=== PATIENT | female | born 1940 | race Caucasian/White ===

== ENCOUNTER 2016-08-26 03:59 | Inpatient (IN) | payer MEDICARE ==
[~2016-08-26] VITALS: Ht 149.9 cm; Wt 68.5 kg
[2016-08-26 05:00] VITALS: BP 163/77
[2016-08-26] MEDS ORDERED: MORPHINE SULFATE 2 MG/ML DISP.SYRIN. IV PRN (06:00)
[2016-08-26] MEDS ORDERED: ONDANSETRON PF 4 MG/2 ML VIAL. IV PRN (06:00)
[2016-08-26] MEDS ORDERED: MORPHINE SULFATE 4 MG/ML DISP.SYRIN. IV PRN (06:00)
[2016-08-26] MEDS: IV NORMAL SALINE 1000ML BAG 1,000 ML IV SCH ×2 (06:03→19:20)
[2016-08-26] MEDS ORDERED: LORA10TA55 PO (06:20)
[2016-08-26] MEDS ORDERED: RANI150C PO (06:20)
[2016-08-26] MEDS ORDERED: ASPI81TA2 PO (06:20)
[2016-08-26] MEDS ORDERED: DOCU100C5 PO (06:20)
[2016-08-26] MEDS ORDERED: POLY17PO3 PO (06:20)
[2016-08-26] MEDS ORDERED: URSODIOL 300 MG PO (06:20)
[2016-08-26] MEDS ORDERED: SIMV40TA3 PO (06:20)
[2016-08-26 06:51] LABS: CREATININE 0.6 mg/dL (0.6-1.0)
[2016-08-26 06:54] LABS: BASO % 0 % (0-3); EOS % 0 % (0-3); HEMATOCRIT 38.1 % (36.0-47.0); HEMOGLOBIN 12.8 g/dL (12.0-15.5); LYMPH # 0.6 x10^3/uL (1.0-4.8); LYMPH % 5 % (24-48); MEAN CORPUSCULAR HEMOGLOBIN 31 pg (25-35); MEAN CORPUSCULAR HGB CONC 34 g/dL (31-37); MEAN CORPUSCULAR VOLUME 93 fL (79-100); MONO % 2 % (0-9); NEUT % 93 % (31-73); PLATELET COUNT 245 x10^3/uL (140-400); RED CELL DISTRIBUTION WIDTH 13.5 % (11.5-14.5); WHITE BLOOD COUNT 10.4 x10^3/uL (4.0-11.0)
[2016-08-26 07:00] VITALS: BP 147/61
[2016-08-26 09:09] LABS: PLT ESTIMATE ADEQUATE (ADEQUATE)
[2016-08-26 11:00] VITALS: BP 141/68
[2016-08-26] MEDS: POLYETHYLENE GLYCOL 3350 17 GM PACKET. PO SCH (12:00)
[2016-08-26] MEDS: DOCUSATE SODIUM 100 MG CAPSULE PO SCH (12:00)
[2016-08-26] MEDS: ASPIRIN 81 MG TAB.CHEW PO SCH (12:00)
--- NOTE | 2016-08-26 12:57 | PDOC ---
Provider Note Provider Note full consult to follow. sbo, improving. cont npo, ng tube. KISHOR NEWMAN MD Aug 26, 2016 12:57
--- NOTE | 2016-08-26 14:55 | HP ---
ADMIT DATE: 08/26/2016 CHIEF COMPLAINT: Abdominal pain. HISTORY OF PRESENT ILLNESS: The patient is a pleasant middle-aged female who presented to the ER at [facility] with abdominal pain. She was noted to have gallstone pancreatitis. I discussed the case with the ER physician. We transferred to our facility. She is going to have consultation with General Surgery. PAST MEDICAL HISTORY: Gallstones, constipation and hyperlipidemia. ALLERGIES: DIPHENHYDRAMINE. FAMILY HISTORY: Diabetes. SOCIAL HISTORY: She does not drink, smoke or take drugs. MEDICATIONS: Reviewed, please refer to the MRAD. REVIEW OF SYSTEMS: GENERAL: No history of weight change, weakness or fevers. SKIN: No bruising, hair changes or rashes. EYES: No blurred, double or loss of vision. NOSE AND THROAT: No history of nosebleeds, hoarseness or sore throat. HEART: No history of palpitations, chest pain or shortness of breath on exertion. LUNGS: Denies cough, hemoptysis, wheezing or shortness of breath. GASTROINTESTINAL: She complains of abdominal pain. GENITOURINARY: No history of frequency, urgency, hesitancy or nocturia. NEUROLOGIC: Denies history of numbness, tingling, tremor or weakness. PSYCHIATRIC: No history of panic, anxiety or depression. ENDOCRINE: No history of heat or cold intolerance, polyuria or polydipsia. EXTREMITIES: Denies muscle weakness, joint pain, pain on walking or stiffness. PHYSICAL EXAMINATION: VITAL SIGNS: Temperature afebrile, pulse 74, respirations 20, blood pressure 163/77. GENERAL: She is alert, cooperative. HEART: Normal S1, S2. LUNGS: Clear. ABDOMEN: Soft, positive bowel sounds, tender. EXTREMITIES: No edema. SKIN: No rashes. PSYCHIATRIC: She is stable. VASCULAR: Good capillary refill. ENDOCRINE: No thyromegaly. LYMPHATICS: No cervical nodes. HEMATOPOIETIC: No bruising. LABORATORY DATA: Electrolytes are normal other sodium of 135 and glucose of 143. Hematology, normal. ASSESSMENT AND PLAN: Symptomatic gallstones. The patient has been admitted. We are consulting General Surgery, suspect she might need laparoscopic cholecystectomy. We will continue IV hydration, p.r.n. pain meds, recheck her labs, home meds. STEPHANIE JUAN DO DR: Alvino JOB#: [id number] / [id number]
[2016-08-26 15:00] VITALS: BP 138/75
[2016-08-26 19:00] VITALS: BP 169/66
[2016-08-26] MEDS: SIMVASTATIN 40 MG TABLET. PO SCH (21:00)
[2016-08-26] MEDS ORDERED: FAMOTIDINE 20 MG TABLET. PO SCH (21:00)
[2016-08-26] MEDS: FAMOTIDINE 20 MG/2 ML VIAL IVP SCH (22:12)
[2016-08-26 23:00] VITALS: BP 143/74
[2016-08-27 03:00] VITALS: BP 160/70
[2016-08-27] MEDS ORDERED: CHOL100013 PO (03:51)
[2016-08-27] MEDS ORDERED: IPRA3AMP NEB (03:56)
[2016-08-27] MEDS ORDERED: ASCO10002 PO (03:56)
[2016-08-27] MEDS ORDERED: MULT1TAB52 PO (03:56)
[2016-08-27] MEDS ORDERED: OMEG1CAP28 PO (03:56)
[2016-08-27] MEDS ORDERED: IPRATRPIUM/ALBUTEROL 0.5/2.5MG 3 ML NEBU. NEB ONE (04:00)
[2016-08-27 07:00] VITALS: BP 164/73
[2016-08-27] MEDS: IV NORMAL SALINE 1000ML BAG 1,000 ML IV SCH ×2 (07:30→21:13)
[2016-08-27] MEDS: ASPIRIN 81 MG TAB.CHEW PO SCH (08:29)
[2016-08-27] MEDS: DOCUSATE SODIUM 100 MG CAPSULE PO SCH (08:30)
[2016-08-27] MEDS: POLYETHYLENE GLYCOL 3350 17 GM PACKET. PO SCH (08:30)
[2016-08-27 11:00] VITALS: BP 167/71
--- NOTE | 2016-08-27 12:49 | CONS ---
DATE OF CONSULTATION: 08/26/2016 CHIEF COMPLAINT: Abdominal pain. HISTORY OF PRESENT ILLNESS: The patient is a 75-year-old female who began having abdominal pain yesterday. The pain was constant and severe. It has now nearly resolved at the time that I saw her earlier today. The pain was located along the left side of her abdomen around and then below her colostomy and it was associated with nausea and vomiting. She did continue to have stool from her ostomy. Her history is significant for undergoing an APR approximately 7-8 years ago followed with chemotherapy and radiation for rectal cancer. She was found with parastomal hernia, which was repaired with mesh. This failed and required removal of the mesh, relocation of the stoma and repair of her recurrent hernia with more mesh. She has had a longstanding hernia along her left lateral abdomen, below and around her ostomy. She says it is getting larger. PAST MEDICAL HISTORY: 1. Rectal cancer for which she underwent APR. 2. Hypercholesterolemia. 3. COPD. PAST SURGICAL HISTORY: 1. APR. 2. Parastomal hernia repair. 3. Repair of recurrent parastomal hernia with mesh, removal of old mesh and the relocation of her ostomy. ALLERGIES: BENADRYL. MEDICATIONS: I have reviewed the medication administration record as well as her home medication. SOCIAL HISTORY: She is a former smoker. She is not a heavy drinker. She is single. FAMILY HISTORY: Noncontributory to this illness. REVIEW OF SYSTEMS: CONSTITUTIONAL: Denies fevers, chills. EYES: Denies abrupt loss of vision or double vision. EARS, NOSE, MOUTH AND THROAT: Denies ringing in her ears, but has had some loss of hearing as she ages. CARDIOVASCULAR: Denies chest pain or heart palpitations. RESPIRATORY: She has chronic shortness of breath and cough. This is at her baseline. GASTROINTESTINAL: See HPI. GENITOURINARY: No dysuria or hematuria. HEMATOLOGIC: No easy bleeding or bruising. MUSCULOSKELETAL: She has some arthralgias in her hands. No new myalgias or arthralgias. DERMATOLOGIC: No new skin rashes or lesions. NEUROLOGIC: No headaches or seizures. PSYCHIATRIC: No depression or anxiety. PHYSICAL EXAMINATION: VITAL SIGNS: At the time I saw her was afebrile with a heart rate 95, respiratory rate 20, blood pressure 141/68. She is somewhat obese with a BMI of 31. GENERAL: This is a well-developed, well-nourished female in no acute distress. EYES: Pupils are round and reactive. Sclerae are nonicteric. HEENT: Head is atraumatic. Mucous membranes moist. Face symmetric. NECK: Supple, without cervical lymphadenopathy. No cervical or supraclavicular lymphadenopathy. Neck is nontender without masses. CARDIOVASCULAR: Regular rate and rhythm. No pedal edema is noted. RESPIRATORY: Respirations are nonlabored. Chest wall nontender to palpation. ABDOMEN: Soft, nondistended, nontender. She does have fullness along the left side of her abdomen. Because of her obesity, it is difficult to ascertain the fascial edges. Her hernias are soft and nontender. She does have stool in her ostomy bag. DERMATOLOGIC: Exposed portions of her skin are unremarkable without rashes or lesions. NEUROLOGICAL: Alert and oriented x 3. No resting tremor. She is able to move all 4 extremities without difficulty. She is able to sit up on her own from lying down in the bed without difficulty. PSYCHIATRIC: She is cooperative with appropriate mood and affect. PERIANAL EXAM: Confirms absence of anus consistent with her history of APR. Digital exam was performed. History was not certain if she had an APR, if she still had an anus, or if she was at some point would be eligible for takedown ostomy. Exam confirms that she has had an APR but not be a candidate for ostomy reversal. LABORATORY DATA: Reviewed. I reviewed her CT images. ASSESSMENT: 1. Small-bowel obstruction could be adhesive versus radiation-induced versus related to her parastomal hernia. This seems to be present on admission, but now much improved. 2. Obesity with a BMI of 31. 3. History of rectal cancer status post abdominoperineal resection, radiation, chemotherapy. 4. Hyperlipidemia. 5. Chronic obstructive pulmonary disease and chronic respiratory failure. 6. Parastomal hernia as well as a left lower quadrant incisional hernia. 7. Cholelithiasis without symptoms. PLAN: At this point, the patient has an NG tube in place, she is n.p.o. I do agree with the management. I would follow her clinically. Hopefully, she will continue to improve and resolve this obstruction without requiring surgery. We did discuss that surgery in her would have significant risks including a nearly inevitable parastomal hernia recurrence given that she has had two ostomies both of which developed peristomal hernia and she remains obese. She seems to understand this fact. I will follow along. KISHOR NEWMAN MD DR: CORI/judith JOB#: [id number] / [id number] STEPHANIE Solis Kathleen MTDD
--- NOTE | 2016-08-27 14:01 | PDOC ---
PROGRESS NOTES Chief Complaint Chief Complaint - small-bowel obstruction; adhesive vs radiation-induced vs associated with hernia. - cholelithiasis; r/o gallstone pancreatitis (Lipase nrml) - hx of rectal cancer; s/p abdominoperineal resection - parastomal hernia, incisional hernia LLQ - COPD - hyperlipidemia - obesity; BMI 31 History of Present Illness History of Present Illness Patient is in no acute distress when evaluated this AM. DPA present at bedside. Reports feeling better. Denies abdominal pain at this time. Lipase is normal and though there were reports of cholelithiasis, this does not appear to be the cause of the patient's symptoms. Was seen by general surgery who suspect a small bowel obstruction, and are hoping to avoid another surgery as the pt is at risk for complications. Vitals Vitals Vital Signs Date Time Temp Pulse Resp B/P Pulse Ox O2 Delivery O2 Flow Rate FiO2 08/27/16 11:00 97.8 84 18 167/71 96 Room Air 97.8 08/27/16 08:00 3.0 Physical Exam General: Alert, Cooperative, No acute distress Heart: Regular rate, Normal S1 Lungs: Clear Abdomen: Soft, No tenderness Extremities: No cyanosis, No edema Skin: No significant lesion Labs LABS Laboratory Tests Test 08/27/16 11:50 Lipase 206U/L (73-393) Review of Systems Review of Systems denies fever, chills denies abdominal pain denies nausea, vomiting Assessment and Plan Assessmemt and Plan ASSESSMENT: - small-bowel obstruction; adhesive vs radiation-induced vs associated with hernia. - cholelithiasis; likely not the cause of the pt's symptoms. r/o gallstone pancreatitis (Lipase nrml) - hx of rectal cancer; s/p abdominoperineal resection - parastomal hernia, incisional hernia LLQ - COPD - hyperlipidemia - obesity; BMI 31 PLAN: - Gen Surgery on the case; hoping pt will continue to improve and obstruction will resolve without requiring surgery, as the pt has significant risks. - Lipase level nrml - cont NGT, NPO - cont IVF - cont prn pain meds - recheck daily labs Problems: Comment Review of Relevant I have reviewed the following items loren (where applicable) has been applied. Labs Laboratory Tests Test 08/26/16 06:30 08/27/16 11:50 White Blood Count 10.4x10^3/uL (4.0-11.0) Red Blood Count 4.10x10^6/uL (3.50-5.40) Hemoglobin 12.8g/dL (12.0-15.5) Hematocrit 38.1% (36.0-47.0) Mean Corpuscular Volume 93fL (79-100) Mean Corpuscular Hemoglobin 31pg (25-35) Mean Corpuscular Hemoglobin Concent 34g/dL (31-37) Red Cell Distribution Width 13.5% (11.5-14.5) Platelet Count 245x10^3/uL (140-400) Neutrophils (%) (Auto) 93% (31-73) Lymphocytes (%) (Auto) 5% (24-48) Monocytes (%) (Auto) 2% (0-9) Eosinophils (%) (Auto) 0% (0-3) Basophils (%) (Auto) 0% (0-3) Neutrophils # (Auto) 9.7x10^3uL (1.8-7.7) Lymphocytes # (Auto) 0.6x10^3/uL (1.0-4.8) Monocytes # (Auto) 0.2x10^3/uL (0.0-1.1) Eosinophils # (Auto) 0.0x10^3/uL (0.0-0.7) Basophils # (Auto) 0.0x10^3/uL (0.0-0.2) Segmented Neutrophils % 82% (35-66) Band Neutrophils % 10% (0-9) Lymphocytes % 6% (24-48) Monocytes % 2% (0-10) Platelet Estimate Adequate (ADEQUATE) Sodium Level 135mmol/L (136-145) Potassium Level 4.0mmol/L (3.5-5.1) Chloride Level 98mmol/L (98-107) Carbon Dioxide Level 28mmol/L (21-32) Anion Gap 9 (6-14) Blood Urea Nitrogen 9mg/dL (7-20) Creatinine 0.6mg/dL (0.6-1.0) Estimated GFR (Cockcroft-Gault) 98.0 Glucose Level 143mg/dL (70-99) Calcium Level 9.0mg/dL (8.5-10.1) Lipase 206U/L (73-393) Laboratory Tests Test 08/27/16 11:50 Lipase 206U/L (73-393) Medications Current Medications Morphine Sulfate 2 mg PRN Q2HR PRN IV MODERATE PAIN; Start 08/26/16 at 06:00 Morphine Sulfate 4 mg PRN Q2HR PRN IV SEVERE PAIN; Start 08/26/16 at 06:00 Ondansetron HCl 4 mg 4 mg PRN Q6HRS PRN IV NAUSEA/VOMITING; Start 08/26/16 at 06 :00 Sodium Chloride (Iv Sodium Chloride 0.9% 1000ml Bag) 1,000 ml @ 75 mls/hr [id number] IV Last administered on 08/27/16 07:30; Start 08/26/16 at 06:00 Aspirin (Children'S Aspirin) 81 mg DAILY PO ; Start 08/26/16 at 12:00 Docusate Sodium (Colace) 100 mg DAILY PO ; Start 08/26/16 at 12:00 Polyethylene Glycol (miraLAX PACKET) 17 gm DAILY PO ; Start 08/26/16 at 12:00 Simvastatin (Zocor) 40 mg QHS PO ; Start 08/26/16 at 21:00 Famotidine (Pepcid) 20 mg QHS PO ; Start 08/26/16 at 21:00; Stop 08/26/16 at 21:00 ; Status DC Famotidine (Pepcid) 20 mg QHS IVP Last administered on 08/26/16 22:12; Start at 21:00 Albuterol/ Ipratropium (Duoneb) 3 ml 1X ONCE NEB Last administered on 04:10; Start 08/27/16 at 04:00; Stop 08/27/16 at 04:01; Status DC Active Scripts Active Reported Duoneb 0.5-3(2.5) Mg/3 Ml (Albuterol/Ipratropium) 3 Ml Ampul.neb 3 Ml NEB Q8HRS Fish Oil 1,200 Mg Softgel (Ada-3 Fatty Acids/Fish Oil) 1 Each Capsule 1 Each PO Vitamin C (Ascorbic Acid) 1,000 Mg Tablet 1,000 Mg PO Multivitamins (Multivitamin) 1 Each Tablet 1 Tab PO DAILY Vitamin D (Cholecalciferol (Vitamin D3)) 1,000 Unit Capsule 1 Cap PO DAILY Docusate Sodium 100 Mg Capsule 1 Cap PO DAILY Aspirin 81 Mg Tab.chew 1 Tab PO DAILY Loratadine 10 Mg Tab.rapdis 10 Mg PO Polyethylene Glycol 3350 17 Gm Powd.pack 17 Gm PO DAILY [urosodiol 300mg ] PO QID Simvastatin 40 Mg Tablet 1 Tab PO QHS Ranitidine Hcl 150 Mg Capsule 150 Mg PO DAILY Vitals/I & O Vital Sign - Last 24 Hours 08/26/16 08/26/16 08/26/16 08/26/16 15:00 19:00 20:00 23:00 Temp 98.8 98.1 98.4 98.8 98.1 98.4 Pulse 92 91 81 Resp 20 B/P 138/75 169/66 143/74 Pulse Ox 93 97 97 O2 Delivery Nasal Cannula Nasal Cannula Nasal Cannula Nasal Cannula O2 Flow Rate 2.0 2.0 2.0 2.0 08/27/16 08/27/16 08/27/16 08/27/16 03:00 04:09 07:00 08:00 Temp 98.2 98.0 98.2 98.0 Pulse 85 87 Resp 20 18 B/P 160/70 164/73 Pulse Ox 93 96 96 O2 Delivery Nasal Cannula Nasal Cannula Room Air Nasal Cannula O2 Flow Rate 2.0 3.0 3.0 08/27/16 11:00 Temp 97.8 97.8 Pulse 84 Resp 18 B/P 167/71 Pulse Ox 96 O2 Delivery Room Air Intake and Output 08/26/16 08/26/16 08/27/16 15:00 23:00 07:00 Intake Total 0 ml Output Total 500 ml Balance -500 ml STEPHANIE JUAN III DO Aug 27, 2016 14:01
[2016-08-27 15:00] VITALS: BP 169/75
--- NOTE | 2016-08-27 16:17 | PDOC ---
Provider Note Provider Note minimal out of ostomy. no abd pain, no distention afeb vss appears well abd soft nd nt ostomy bag with small amt stool in bag. ng in place--output not charted in i/o's a/p sbo, seemingly improved. will reassess tomorrow. KISHOR NEWMAN MD Aug 27, 2016 16:17
[2016-08-27 19:41] VITALS: BP 187/78
[2016-08-27] MEDS: FAMOTIDINE 20 MG/2 ML VIAL IVP SCH (20:04)
[2016-08-27] MEDS: SIMVASTATIN 40 MG TABLET. PO SCH (20:05)
[2016-08-27] MEDS: IPRATRPIUM/ALBUTEROL 0.5/2.5MG 3 ML NEBU. NEB SCH (20:08)
[2016-08-27] MEDS: ZOLPIDEM 5 MG TABLET. PO PRN (21:12)
[2016-08-27 23:04] VITALS: BP 169/67
--- NOTE | 2016-08-28 00:49 | ACF ---
Admission Forms Criteria ABDOMINAL PAIN Clinical Indications for Admission to Inpatient Care (Place 'X' for any and all applicable criteria): Admission is indicated for ANY ONE of the following(1)(2)(3)(4)(5): [ ]I. Inpatient admission required rather than observation care (Also use Abdominal Pain: Observation Care, as appropriate) because of ANY ONE of the following: [ ]a) Severe pain requiring acute inpatient management [ ]b) Identification of etiology/finding that requires inpatient care (eg, aortic dissection, free air) [ ]c) Absent bowel sounds with complete ileus(6) [ ]d) Suspected toxic megacolon [ ]e) Severe electrolyte abnormalities requiring inpatient care [ ]f) High fever or infection requiring inpatient admission as indicated by ANY ONE of following(7)(8): [ ] i) Appropriate outpatient or observational care antimicrobial treatment unavailable, not effective, or not feasible [ ] ii) Documented bacteremia [ ] iii) Temperature > 104.9 degrees F (oral) [ ] iv) T >103.1 F (oral) or < 96.8 F(rectal) that does not respond to all emergency treatment measures [ ]g) Signs of intestinal obstruction [B] [ ]h) Hemodynamic instability [ ]i) IV fluid to replace significant ongoing losses (greater than 3 L/m2 per day) (12)(13) [ ]j) Percutaneous or open drainage (eg, abscess, biliary tract ) procedures [ ]k) Parenteral nutrition regimen that must be implemented on inpatient basis [ ]l) Other condition,treatment or monitoring requiring inpatient admission. [ ]II. Peritoneal signs present [X]III. Surgery needed that cannot be performed on an ambulatory basis. [ ]IV. Evaluation requires patient to not eat or drink for extended period ( eg, more than 24 hours). [ ]V. Contraindications and/or Inappropriate clinical situations for Observational Care in patients with abdominal pain, when ANY ONE of the following is required: [ ]a) Thorough evaluation is required to prevent catastrophic events due to delays in diagnosing (e.g.Mesenteric ischemia) 1,3 [ ]b) Patient with severe pathology or with chronic symptoms unlikely to improve in the ED stay (3) [ ]. General contraindications and/or Inappropriate clinical situations for Observational Care in patients with abdominal pain, when ANY ONE of the following is required: [ ]a) Prediction of prolongation of LOS based on ANY ONE of the following may be considered as a contraindication for observational care 2, 3, 4, 5, 6, 7, 8, 9, 10, 11 [ ]i) Age > 65 yrs. [ ]ii) Patient arriving by ambulance [ ]iii) Patient with high acuity [ ]iv) Patient requiring vital sign monitoring [ ]v) Patient on IV medication [ ]b) Systolic blood pressures 180mmHg 3,12 [ ]c) Patient with altered mental status including delirium and other alteration of consciousness, (3) [ ]d) Patient whose discharge disposition will be to a residential home or rehabilitation home should not be managed in Emergency Department Observation Unit. CMS rule requires 3 days hospital stay before such placement.3,13 [ ]e) Patient with failure to thrive due to broad array of etiologies 3,16,17 [ ]f) Inability to ambulate 3,14 Extended stay beyond goal length of stay may be needed for(2)(3): [ ]a) Persistent abdominal pain with suspected intra-abdominal process [ ]b) Diagnosed condition requiring continued stay (e.g., pancreatitis, complicated diverticulitis) [ ]c) Surgery (e.g., colectomy) The original [facility] content created by [employer] has been revised. The portions of the content which have been revised are identified through the use of italic text or in bold, and [facility] has neither reviewed nor approved the modified material.All other unmodified content is copyright [facility]. Please see references footnoted in the original [facility] edition 2016 Admission Criteria Met?: Yes JENNA SOLIS Aug 28, 2016 00:49
[2016-08-28 03:10] VITALS: BP 161/79
[2016-08-28 05:01] LABS: BASO # 0.1 x10^3/uL (0.0-0.2); BASO % 1 % (0-3); EOS % 3 % (0-3); HEMATOCRIT 38.4 % (36.0-47.0); HEMOGLOBIN 12.8 g/dL (12.0-15.5); LYMPH # 1.1 x10^3/uL (1.0-4.8); LYMPH % 18 % (24-48); MEAN CORPUSCULAR HEMOGLOBIN 31 pg (25-35); MEAN CORPUSCULAR HGB CONC 33 g/dL (31-37); MEAN CORPUSCULAR VOLUME 93 fL (79-100); MONO % 10 % (0-9); NEUT % 69 % (31-73); PLATELET COUNT 243 x10^3/uL (140-400); RED BLOOD COUNT 4.13 x10^6/uL (3.50-5.40); RED CELL DISTRIBUTION WIDTH 13.3 % (11.5-14.5); WHITE BLOOD COUNT 6.5 x10^3/uL (4.0-11.0)
[2016-08-28 05:24] LABS: CALCIUM 8.8 mg/dL (8.5-10.1); CREATININE 0.5 mg/dL (0.6-1.0); GFR 120.9
[2016-08-28 05:27] LABS: POTASSIUM 2.7 mmol/L (3.5-5.1)
[2016-08-28] MEDS: POTASSIUM CHLORIDE 10MEQ 100 ML IV SCH ×4 (06:17→11:59)
[2016-08-28 07:00] VITALS: BP 172/83
[2016-08-28] MEDS: IPRATRPIUM/ALBUTEROL 0.5/2.5MG 3 ML NEBU. NEB SCH ×3 (07:30→20:55)
--- NOTE | 2016-08-28 08:57 | PDOC ---
CHANDA DONOVAN VB NET PROGRAMMER 08/28/16 0857: SURGICAL PROGRESS NOTE Subjective no significant ostomy function denies abdominal pain Vital Signs Vital Signs Date Time Temp Pulse Resp B/P Pulse Ox O2 Delivery O2 Flow Rate FiO2 08/28/16 07:30 98 Nasal Cannula 3.0 08/28/16 07:00 97.7 84 18 172/83 97.7 I&O Intake and Output 08/28/16 07:00 Intake Total 0 ml Output Total 1700 ml Balance -1700 ml Intake Oral 0 ml Output Urine Total 700 ml Gastric Drainage Total 1000 ml General: Alert, Oriented X3, Cooperative, No acute distress HEENT: Other (ng dark/rust color) Abdomen: Soft, No tenderness, Other (ostomy small amount of thick stool) Labs Laboratory Tests Test 08/27/16 11:50 08/28/16 04:05 Lipase 206U/L (73-393) White Blood Count 6.5x10^3/uL (4.0-11.0) Red Blood Count 4.13x10^6/uL (3.50-5.40) Hemoglobin 12.8g/dL (12.0-15.5) Hematocrit 38.4% (36.0-47.0) Mean Corpuscular Volume 93fL (79-100) Mean Corpuscular Hemoglobin 31pg (25-35) Mean Corpuscular Hemoglobin Concent 33g/dL (31-37) Red Cell Distribution Width 13.3% (11.5-14.5) Platelet Count 243x10^3/uL (140-400) Neutrophils (%) (Auto) 69% (31-73) Lymphocytes (%) (Auto) 18% (24-48) Monocytes (%) (Auto) 10% (0-9) Eosinophils (%) (Auto) 3% (0-3) Basophils (%) (Auto) 1% (0-3) Neutrophils # (Auto) 4.5x10^3uL (1.8-7.7) Lymphocytes # (Auto) 1.1x10^3/uL (1.0-4.8) Monocytes # (Auto) 0.6x10^3/uL (0.0-1.1) Eosinophils # (Auto) 0.2x10^3/uL (0.0-0.7) Basophils # (Auto) 0.1x10^3/uL (0.0-0.2) Sodium Level 143mmol/L (136-145) Potassium Level 2.7mmol/L (3.5-5.1) Chloride Level 102mmol/L (98-107) Carbon Dioxide Level 31mmol/L (21-32) Anion Gap 10 (6-14) Blood Urea Nitrogen 8mg/dL (7-20) Creatinine 0.5mg/dL (0.6-1.0) Estimated GFR (Cockcroft-Gault) 120.9 Glucose Level 91mg/dL (70-99) Calcium Level 8.8mg/dL (8.5-10.1) Magnesium Level 2.1mg/dL (1.8-2.4) Laboratory Tests Test 08/27/16 11:50 08/28/16 04:05 Lipase 206U/L (73-393) White Blood Count 6.5x10^3/uL (4.0-11.0) Red Blood Count 4.13x10^6/uL (3.50-5.40) Hemoglobin 12.8g/dL (12.0-15.5) Hematocrit 38.4% (36.0-47.0) Mean Corpuscular Volume 93fL (79-100) Mean Corpuscular Hemoglobin 31pg (25-35) Mean Corpuscular Hemoglobin Concent 33g/dL (31-37) Red Cell Distribution Width 13.3% (11.5-14.5) Platelet Count 243x10^3/uL (140-400) Neutrophils (%) (Auto) 69% (31-73) Lymphocytes (%) (Auto) 18% (24-48) Monocytes (%) (Auto) 10% (0-9) Eosinophils (%) (Auto) 3% (0-3) Basophils (%) (Auto) 1% (0-3) Neutrophils # (Auto) 4.5x10^3uL (1.8-7.7) Lymphocytes # (Auto) 1.1x10^3/uL (1.0-4.8) Monocytes # (Auto) 0.6x10^3/uL (0.0-1.1) Eosinophils # (Auto) 0.2x10^3/uL (0.0-0.7) Basophils # (Auto) 0.1x10^3/uL (0.0-0.2) Sodium Level 143mmol/L (136-145) Potassium Level 2.7mmol/L (3.5-5.1) Chloride Level 102mmol/L (98-107) Carbon Dioxide Level 31mmol/L (21-32) Anion Gap 10 (6-14) Blood Urea Nitrogen 8mg/dL (7-20) Creatinine 0.5mg/dL (0.6-1.0) Estimated GFR (Cockcroft-Gault) 120.9 Glucose Level 91mg/dL (70-99) Calcium Level 8.8mg/dL (8.5-10.1) Magnesium Level 2.1mg/dL (1.8-2.4) Problem List sbo NG 1150cc out, no significant bowel function hypokalemia--has replacement ordered will check SBFT with gg to further assess SBO Problems: KISHOR NEWMAN MD 08/28/16 1212: SURGICAL PROGRESS NOTE Assessment/Plan addendum i saw and examined her in radiology. denies abd pain. has had to empty her ostomy after/during her sbft afeb vss abd soft nd nt ostomy working sbft images reviewed--contrast in colon at 90 minutes no sig small bowel dilation by my read. official read pending a/p sbo, resolved. dc ng and adat. dw pt who is pleased Problems: CHANDA DONOVAN APRN Aug 28, 2016 08:57 KISHOR NEWMAN MD Aug 28, 2016 12:12
[2016-08-28] MEDS: DOCUSATE SODIUM 100 MG CAPSULE PO SCH (09:00)
[2016-08-28] MEDS: ASPIRIN 81 MG TAB.CHEW PO SCH (09:00)
[2016-08-28] MEDS: POLYETHYLENE GLYCOL 3350 17 GM PACKET. PO SCH (09:00)
[2016-08-28] MEDS ORDERED: IOHEXOL 350 MG/ML 100ML VIAL. PO ONE ×2 (09:15→10:00)
[2016-08-28] MEDS ORDERED: CONTRAST GIVEN MC PRN (09:30)
[2016-08-28] MEDS: IV NORMAL SALINE 1000ML BAG 1,000 ML IV SCH (11:57)
[2016-08-28 12:00] VITALS: BP 169/74
--- NOTE | 2016-08-28 12:15 | RAD ---
EXAM: Water soluble small bowel follow-through. HISTORY: Small bowel obstruction. COMPARISON: Recent CT. FINDINGS: A sales and marketing representative image was obtained. A nasogastric tube has its tip within the stomach. Minimal gallstones are noted in the gallbladder. There is a nonobstructive bowel gas pattern. A left lower quadrant ostomy is noted. Water-soluble contrast was administered through the nasogastric tube. The stomach has a normal contour. There are no distended loops of small bowel currently. Small bowel loops into the 2 left-sided hernias, but this is not well demonstrated on these images. No stricture is identified. Contrast has reached the left colon by 60 minutes. Contrast containing loops of colon are seen within the left-sided hernias. IMPRESSION: 1. No evidence of small bowel obstruction currently. Normal transit time. 2. Multiple loops of small and large bowel within 2 left sided hernias as better demonstrated on CT.
--- NOTE | 2016-08-28 12:34 | PDOC ---
PROGRESS NOTES Chief Complaint Chief Complaint - small-bowel obstruction; adhesive vs radiation-induced vs associated with hernia. - cholelithiasis; r/o gallstone pancreatitis (Lipase nrml) - hx of rectal cancer; s/p abdominoperineal resection with colostomy - parastomal hernia, incisional hernia LLQ - COPD - hyperlipidemia - obesity; BMI 31 hypokalemia plan: 1. fu with sx 2. AXR today, better , no SBO anymore NGT removed and advance diet to full liquid as per sx 3. cont ivf for now, dc tmr hope to dc home tmr repleted K, Mag normal History of Present Illness History of Present Illness Patient is in no acute distress when evaluated this AM. DPA present at bedside. Reports feeling better. Denies abdominal pain at this time. Lipase is normal and though there were reports of cholelithiasis, this does not appear to be the cause of the patient's symptoms. Was seen by general surgery who suspect a small bowel obstruction, and are hoping to avoid another surgery as the pt is at risk for complications. still lots of NGT suction with green liquid, no flatus or BM since coming to hosp Vitals Vitals Vital Signs Date Time Temp Pulse Resp B/P Pulse Ox O2 Delivery O2 Flow Rate FiO2 08/28/16 12:00 97.7 105 20 169/74 93 Room Air 97.7 08/28/16 07:30 3.0 Physical Exam Physical Exam + bs General: Alert, Oriented X3, Cooperative, No acute distress Heart: Regular rate, Normal S1 Lungs: Clear Abdomen: Soft, No tenderness, Other (ostomy small amount of thick stool) Extremities: No cyanosis, No edema Skin: No significant lesion Labs LABS Laboratory Tests Test 08/28/16 04:05 White Blood Count 6.5x10^3/uL (4.0-11.0) Red Blood Count 4.13x10^6/uL (3.50-5.40) Hemoglobin 12.8g/dL (12.0-15.5) Hematocrit 38.4% (36.0-47.0) Mean Corpuscular Volume 93fL (79-100) Mean Corpuscular Hemoglobin 31pg (25-35) Mean Corpuscular Hemoglobin Concent 33g/dL (31-37) Red Cell Distribution Width 13.3% (11.5-14.5) Platelet Count 243x10^3/uL (140-400) Neutrophils (%) (Auto) 69% (31-73) Lymphocytes (%) (Auto) 18% (24-48) Monocytes (%) (Auto) 10% (0-9) Eosinophils (%) (Auto) 3% (0-3) Basophils (%) (Auto) 1% (0-3) Neutrophils # (Auto) 4.5x10^3uL (1.8-7.7) Lymphocytes # (Auto) 1.1x10^3/uL (1.0-4.8) Monocytes # (Auto) 0.6x10^3/uL (0.0-1.1) Eosinophils # (Auto) 0.2x10^3/uL (0.0-0.7) Basophils # (Auto) 0.1x10^3/uL (0.0-0.2) Sodium Level 143mmol/L (136-145) Potassium Level 2.7mmol/L (3.5-5.1) Chloride Level 102mmol/L (98-107) Carbon Dioxide Level 31mmol/L (21-32) Anion Gap 10 (6-14) Blood Urea Nitrogen 8mg/dL (7-20) Creatinine 0.5mg/dL (0.6-1.0) Estimated GFR (Cockcroft-Gault) 120.9 Glucose Level 91mg/dL (70-99) Calcium Level 8.8mg/dL (8.5-10.1) Magnesium Level 2.1mg/dL (1.8-2.4) Review of Systems Review of Systems no fever, chills, sob or chest pain Comment Review of Relevant I have reviewed the following items loren (where applicable) has been applied. Labs Laboratory Tests Test 08/27/16 11:50 08/28/16 04:05 Lipase 206U/L (73-393) White Blood Count 6.5x10^3/uL (4.0-11.0) Red Blood Count 4.13x10^6/uL (3.50-5.40) Hemoglobin 12.8g/dL (12.0-15.5) Hematocrit 38.4% (36.0-47.0) Mean Corpuscular Volume 93fL (79-100) Mean Corpuscular Hemoglobin 31pg (25-35) Mean Corpuscular Hemoglobin Concent 33g/dL (31-37) Red Cell Distribution Width 13.3% (11.5-14.5) Platelet Count 243x10^3/uL (140-400) Neutrophils (%) (Auto) 69% (31-73) Lymphocytes (%) (Auto) 18% (24-48) Monocytes (%) (Auto) 10% (0-9) Eosinophils (%) (Auto) 3% (0-3) Basophils (%) (Auto) 1% (0-3) Neutrophils # (Auto) 4.5x10^3uL (1.8-7.7) Lymphocytes # (Auto) 1.1x10^3/uL (1.0-4.8) Monocytes # (Auto) 0.6x10^3/uL (0.0-1.1) Eosinophils # (Auto) 0.2x10^3/uL (0.0-0.7) Basophils # (Auto) 0.1x10^3/uL (0.0-0.2) Sodium Level 143mmol/L (136-145) Potassium Level 2.7mmol/L (3.5-5.1) Chloride Level 102mmol/L (98-107) Carbon Dioxide Level 31mmol/L (21-32) Anion Gap 10 (6-14) Blood Urea Nitrogen 8mg/dL (7-20) Creatinine 0.5mg/dL (0.6-1.0) Estimated GFR (Cockcroft-Gault) 120.9 Glucose Level 91mg/dL (70-99) Calcium Level 8.8mg/dL (8.5-10.1) Magnesium Level 2.1mg/dL (1.8-2.4) Laboratory Tests Test 08/28/16 04:05 White Blood Count 6.5x10^3/uL (4.0-11.0) Red Blood Count 4.13x10^6/uL (3.50-5.40) Hemoglobin 12.8g/dL (12.0-15.5) Hematocrit 38.4% (36.0-47.0) Mean Corpuscular Volume 93fL (79-100) Mean Corpuscular Hemoglobin 31pg (25-35) Mean Corpuscular Hemoglobin Concent 33g/dL (31-37) Red Cell Distribution Width 13.3% (11.5-14.5) Platelet Count 243x10^3/uL (140-400) Neutrophils (%) (Auto) 69% (31-73) Lymphocytes (%) (Auto) 18% (24-48) Monocytes (%) (Auto) 10% (0-9) Eosinophils (%) (Auto) 3% (0-3) Basophils (%) (Auto) 1% (0-3) Neutrophils # (Auto) 4.5x10^3uL (1.8-7.7) Lymphocytes # (Auto) 1.1x10^3/uL (1.0-4.8) Monocytes # (Auto) 0.6x10^3/uL (0.0-1.1) Eosinophils # (Auto) 0.2x10^3/uL (0.0-0.7) Basophils # (Auto) 0.1x10^3/uL (0.0-0.2) Sodium Level 143mmol/L (136-145) Potassium Level 2.7mmol/L (3.5-5.1) Chloride Level 102mmol/L (98-107) Carbon Dioxide Level 31mmol/L (21-32) Anion Gap 10 (6-14) Blood Urea Nitrogen 8mg/dL (7-20) Creatinine 0.5mg/dL (0.6-1.0) Estimated GFR (Cockcroft-Gault) 120.9 Glucose Level 91mg/dL (70-99) Calcium Level 8.8mg/dL (8.5-10.1) Magnesium Level 2.1mg/dL (1.8-2.4) Medications Current Medications Morphine Sulfate 2 mg PRN Q2HR PRN IV MODERATE PAIN; Start 08/26/16 at 06:00 Morphine Sulfate 4 mg PRN Q2HR PRN IV SEVERE PAIN; Start 08/26/16 at 06:00 Ondansetron HCl 4 mg 4 mg PRN Q6HRS PRN IV NAUSEA/VOMITING; Start 08/26/16 at 06 :00 Sodium Chloride (Iv Sodium Chloride 0.9% 1000ml Bag) 1,000 ml @ 75 mls/hr [id number] IV Last administered on 08/28/16t 11:57; Start 08/26/16 at 06:00 Aspirin (Children'S Aspirin) 81 mg DAILY PO ; Start 08/26/16 at 12:00 Docusate Sodium (Colace) 100 mg DAILY PO ; Start 08/26/16 at 12:00 Polyethylene Glycol (miraLAX PACKET) 17 gm DAILY PO ; Start 08/26/16 at 12:00 Simvastatin (Zocor) 40 mg QHS PO ; Start 08/26/16 at 21:00 Famotidine (Pepcid) 20 mg QHS PO ; Start 08/26/16 at 21:00; Stop 08/26/16 at 21:00 ; Status DC Famotidine (Pepcid) 20 mg QHS IVP Last administered on 08/27/16 20:04; Start at 21:00 Albuterol/ Ipratropium (Duoneb) 3 ml 1X ONCE NEB Last administered on 04:10; Start 08/27/16 at 04:00; Stop 08/27/16 at 04:01; Status DC Albuterol/ Ipratropium (Duoneb) 3 ml Q8HRS NEB Last administered on 08/28/16 07 :30; Start 08/27/16 at 22:00 Zolpidem Tartrate 5 mg 5 mg PRN QHS PRN PO INSOMNIA, MAY REPEAT X1 Last administered on 08/27/16 21:12; Start 08/27/16 at 20:30 Potassium Chloride (KCl Premix 10meq) 100 ml @ 100 mls/hr Q1H IV Last administered on 08/28/16 11:59; Start 08/28/16 at 07:00; Stop 08/28/16 at 10:59; Status DC Iohexol (Omnipaque 350 Mg/ml) 100 ml 1X ONCE PO Last administered on 08/28/16 11:49; Start 08/28/16 at 09:15; Stop 08/28/16 at 09:17; Status DC Info (Do NOT chart on this entry -- for MONITORING) 1 each PRN DAILY PRN MC SEE COMMENTS; Start 08/28/16 at 09:30; Stop 08/30/16 at 09:29 Iohexol (Omnipaque 350 Mg/ml) 100 ml 1X ONCE PO Last administered on 3/6/17at 11:50; Start 08/28/16 at 10:00; Stop 08/28/16 at 10:01; Status DC Active Scripts Active Reported Duoneb 0.5-3(2.5) Mg/3 Ml (Albuterol/Ipratropium) 3 Ml Ampul.neb 3 Ml NEB Q8HRS Fish Oil 1,200 Mg Softgel ([place]-3 Fatty Acids/Fish Oil) 1 Each Capsule 1 Each PO Vitamin C (Ascorbic Acid) 1,000 Mg Tablet 1,000 Mg PO Multivitamins (Multivitamin) 1 Each Tablet 1 Tab PO DAILY Vitamin D (Cholecalciferol (Vitamin D3)) 1,000 Unit Capsule 1 Cap PO DAILY Docusate Sodium 100 Mg Capsule 1 Cap PO DAILY Aspirin 81 Mg Tab.chew 1 Tab PO DAILY Loratadine 10 Mg Tab.rapdis 10 Mg PO Polyethylene Glycol 3350 17 Gm Powd.pack 17 Gm PO DAILY [urosodiol 300mg ] PO QID Simvastatin 40 Mg Tablet 1 Tab PO QHS Ranitidine Hcl 150 Mg Capsule 150 Mg PO DAILY Vitals/I & O Vital Sign - Last 24 Hours 08/27/16 08/27/16 08/27/16 08/27/16 15:00 16:24 19:41 20:09 Temp 98.1 97.9 98.1 97.9 Pulse 80 80 Resp 18 18 B/P 169/75 187/78 Pulse Ox 97 96 96 97 O2 Delivery Room Air Nasal Cannula Room Air Nasal Cannula O2 Flow Rate 3.0 3.0 08/27/16 08/27/16 08/28/16 08/28/16 20:29 23:04 03:10 07:00 Temp 98.3 97.5 97.7 98.3 97.5 97.7 Pulse 88 86 84 Resp 18 18 18 B/P 169/67 161/79 172/83 Pulse Ox 96 94 97 O2 Delivery Nasal Cannula Room Air Room Air Nasal Cannula O2 Flow Rate 2.0 3.0 08/28/16 08/28/16 07:30 12:00 Temp 97.7 97.7 Pulse 105 Resp 20 B/P 169/74 Pulse Ox 98 93 O2 Delivery Nasal Cannula Room Air O2 Flow Rate 3.0 Intake and Output 08/27/16 08/27/16 08/28/16 15:00 23:00 07:00 Intake Total 0 ml Output Total 1000 ml 700 ml Balance -1000 ml -700 ml DEYSI EWING MD Aug 28, 2016 12:34
[2016-08-28] MEDS ORDERED: ACETAMINOPHEN 325 MG TABLET. PO PRN (12:45)
[2016-08-28] MEDS ORDERED: POTASSIUM CHLORIDE 20 MEQ TABLET.ER. PO ONE (14:15)
[2016-08-28 15:00] VITALS: BP 165/72
[2016-08-28 19:00] VITALS: BP 148/59
[2016-08-28] MEDS: ZOLPIDEM 5 MG TABLET. PO PRN (21:15)
[2016-08-28] MEDS: FAMOTIDINE 20 MG/2 ML VIAL IVP SCH (21:15)
[2016-08-28] MEDS: SIMVASTATIN 40 MG TABLET. PO SCH (21:15)
[2016-08-28 23:00] VITALS: BP 129/56
[2016-08-29] MEDS: IV NORMAL SALINE 1000ML BAG 1,000 ML IV SCH ×2 (00:40→14:00)
[2016-08-29 03:00] VITALS: BP 138/49
[2016-08-29 05:01] LABS: BASO # 0.1 x10^3/uL (0.0-0.2); BASO % 1 % (0-3); EOS % 8 % (0-3); HEMATOCRIT 35.6 % (36.0-47.0); HEMOGLOBIN 11.9 g/dL (12.0-15.5); LYMPH # 1.3 x10^3/uL (1.0-4.8); LYMPH % 22 % (24-48); MEAN CORPUSCULAR HEMOGLOBIN 31 pg (25-35); MEAN CORPUSCULAR HGB CONC 34 g/dL (31-37); MEAN CORPUSCULAR VOLUME 93 fL (79-100); MONO % 10 % (0-9); NEUT % 59 % (31-73); PLATELET COUNT 228 x10^3/uL (140-400); RED BLOOD COUNT 3.83 x10^6/uL (3.50-5.40); RED CELL DISTRIBUTION WIDTH 13.4 % (11.5-14.5); WHITE BLOOD COUNT 5.7 x10^3/uL (4.0-11.0)
[2016-08-29 05:19] LABS: CALCIUM 8.7 mg/dL (8.5-10.1); CREATININE 0.5 mg/dL (0.6-1.0); GFR 120.9; POTASSIUM 3.3 mmol/L (3.5-5.1)
[2016-08-29 07:00] VITALS: BP 161/62
[2016-08-29] MEDS: IPRATRPIUM/ALBUTEROL 0.5/2.5MG 3 ML NEBU. NEB SCH (07:16)
[2016-08-29] MEDS ORDERED: POTASSIUM CHLORIDE 20 MEQ TABLET.ER. PO ONE (08:30)
[2016-08-29] MEDS: DOCUSATE SODIUM 100 MG CAPSULE PO SCH (09:00)
[2016-08-29] MEDS: POLYETHYLENE GLYCOL 3350 17 GM PACKET. PO SCH (09:00)
[2016-08-29] MEDS: ASPIRIN 81 MG TAB.CHEW PO SCH (09:42)
[2016-08-29 11:00] VITALS: BP 153/61
--- NOTE | 2016-08-29 13:24 | PDOC ---
SURGICAL PROGRESS NOTE Subjective tolerating diet had stools no nausea or pain Vital Signs Vital Signs Date Time Temp Pulse Resp B/P Pulse Ox O2 Delivery O2 Flow Rate FiO2 08/29/16 11:00 98.0 82 18 153/61 95 Room Air 98.0 08/28/16 07:30 3.0 I&O Intake and Output 08/29/16 07:00 Intake Total 1040 ml Output Total 2275 ml Balance -1235 ml Intake Oral 840 ml IV Total 200 ml Output Urine Total 1125 ml Gastric Drainage Total 1150 ml # Voids 2 General: Alert, Oriented X3, Cooperative, No acute distress Abdomen: Soft, No tenderness Labs Laboratory Tests Test 08/28/16 04:05 08/29/16 04:30 White Blood Count 6.5x10^3/uL (4.0-11.0) 5.7x10^3/uL (4.0-11.0) Red Blood Count 4.13x10^6/uL (3.50-5.40) 3.83x10^6/uL (3.50-5.40) Hemoglobin 12.8g/dL (12.0-15.5) 11.9g/dL (12.0-15.5) Hematocrit 38.4% (36.0-47.0) 35.6% (36.0-47.0) Mean Corpuscular Volume 93fL (79-100) 93fL (79-100) Mean Corpuscular Hemoglobin 31pg (25-35) 31pg (25-35) Mean Corpuscular Hemoglobin Concent 33g/dL (31-37) 34g/dL (31-37) Red Cell Distribution Width 13.3% (11.5-14.5) 13.4% (11.5-14.5) Platelet Count 243x10^3/uL (140-400) 228x10^3/uL (140-400) Neutrophils (%) (Auto) 69% (31-73) 59% (31-73) Lymphocytes (%) (Auto) 18% (24-48) 22% (24-48) Monocytes (%) (Auto) 10% (0-9) 10% (0-9) Eosinophils (%) (Auto) 3% (0-3) 8% (0-3) Basophils (%) (Auto) 1% (0-3) 1% (0-3) Neutrophils # (Auto) 4.5x10^3uL (1.8-7.7) 3.3x10^3uL (1.8-7.7) Lymphocytes # (Auto) 1.1x10^3/uL (1.0-4.8) 1.3x10^3/uL (1.0-4.8) Monocytes # (Auto) 0.6x10^3/uL (0.0-1.1) 0.6x10^3/uL (0.0-1.1) Eosinophils # (Auto) 0.2x10^3/uL (0.0-0.7) 0.4x10^3/uL (0.0-0.7) Basophils # (Auto) 0.1x10^3/uL (0.0-0.2) 0.1x10^3/uL (0.0-0.2) Sodium Level 143mmol/L (136-145) 141mmol/L (136-145) Potassium Level 2.7mmol/L (3.5-5.1) 3.3mmol/L (3.5-5.1) Chloride Level 102mmol/L (98-107) 105mmol/L (98-107) Carbon Dioxide Level 31mmol/L (21-32) 27mmol/L (21-32) Anion Gap 10 (6-14) 9 (6-14) Blood Urea Nitrogen 8mg/dL (7-20) 9mg/dL (7-20) Creatinine 0.5mg/dL (0.6-1.0) 0.5mg/dL (0.6-1.0) Estimated GFR (Cockcroft-Gault) 120.9 120.9 Glucose Level 91mg/dL (70-99) 96mg/dL (70-99) Calcium Level 8.8mg/dL (8.5-10.1) 8.7mg/dL (8.5-10.1) Magnesium Level 2.1mg/dL (1.8-2.4) Laboratory Tests Test 08/29/16 04:30 White Blood Count 5.7x10^3/uL (4.0-11.0) Red Blood Count 3.83x10^6/uL (3.50-5.40) Hemoglobin 11.9g/dL (12.0-15.5) Hematocrit 35.6% (36.0-47.0) Mean Corpuscular Volume 93fL (79-100) Mean Corpuscular Hemoglobin 31pg (25-35) Mean Corpuscular Hemoglobin Concent 34g/dL (31-37) Red Cell Distribution Width 13.4% (11.5-14.5) Platelet Count 228x10^3/uL (140-400) Neutrophils (%) (Auto) 59% (31-73) Lymphocytes (%) (Auto) 22% (24-48) Monocytes (%) (Auto) 10% (0-9) Eosinophils (%) (Auto) 8% (0-3) Basophils (%) (Auto) 1% (0-3) Neutrophils # (Auto) 3.3x10^3uL (1.8-7.7) Lymphocytes # (Auto) 1.3x10^3/uL (1.0-4.8) Monocytes # (Auto) 0.6x10^3/uL (0.0-1.1) Eosinophils # (Auto) 0.4x10^3/uL (0.0-0.7) Basophils # (Auto) 0.1x10^3/uL (0.0-0.2) Sodium Level 141mmol/L (136-145) Potassium Level 3.3mmol/L (3.5-5.1) Chloride Level 105mmol/L (98-107) Carbon Dioxide Level 27mmol/L (21-32) Anion Gap 9 (6-14) Blood Urea Nitrogen 9mg/dL (7-20) Creatinine 0.5mg/dL (0.6-1.0) Estimated GFR (Cockcroft-Gault) 120.9 Glucose Level 96mg/dL (70-99) Calcium Level 8.7mg/dL (8.5-10.1) Problem List Problems Medical Problems: (1) SBO (small bowel obstruction) Status: Acute Assessment/Plan tolerating diet no obstruction dc per primary Problems: CHANDA DONOVAN APRN Aug 29, 2016 13:24
--- NOTE | 2016-08-29 14:41 | PDOC3 ---
Discharge Summary IPC Date of Admission: Aug 26, 2016 Discharge Date: Aug 29, 2016 Admitting Diagnosis small-bowel obstruction; adhesive vs radiation-induced vs associated with hernia. - cholelithiasis; r/o gallstone pancreatitis (Lipase nrml) - hx of rectal cancer; s/p abdominoperineal resection with colostomy - parastomal hernia, incisional hernia LLQ - COPD - hyperlipidemia - obesity; BMI 31 hypokalemia Problems: Final Diagnosis Problems Medical Problems: (1) SBO (small bowel obstruction) Status: Acute CONSULTS sx Brief Hospital Course Ms. Garcia is a 75 old F, was transferred from [facility] for sbo, abd pain. pt improved with bowel rest, no sx ,has bm now through colostomy, no N/V. no pain now dc home dc time 35min Physical Exam + bs General: Alert, Oriented X3, Cooperative, No acute distress Heart: Regular rate, Normal S1 Lungs: Clear Abdomen: Soft, No tenderness, Other (ostomy small amount of thick stool) Extremities: No cyanosis, No edema Skin: No significant lesion Problems: Disposition home CONDITION AT DISCHARGE: Improved Diet regular Scheduled ([urosodiol 300mg ]) PO QID (Reported) Aspirin (Aspirin) 1 TAB PO DAILY (Reported) Cholecalciferol (Vitamin D3) (Vitamin D) 1 CAP PO DAILY (Reported) Docusate Sodium (Docusate Sodium) 1 CAP PO DAILY (Reported) Ipratropium/Albuterol Sulfate (Duoneb 0.5-3(2.5) Mg/3 Ml) 3 ML NEB Q8HRS ( Reported) Multivitamin (Multivitamins) 1 TAB PO DAILY (Reported) Polyethylene Glycol 3350 (Polyethylene Glycol 3350) 17 GM PO DAILY (Reported) Ranitidine Hcl (Ranitidine Hcl) 150 MG PO DAILY (Reported) Simvastatin (Simvastatin) 1 TAB PO QHS (Reported) Miscellaneous Medications Ascorbic Acid (Vitamin C) 1,000 MG PO (Reported) Loratadine (Loratadine) 10 MG PO (Reported) [place]-3 Fatty Acids/Fish Oil (Fish Oil 1,200 Mg Softgel) 1 EACH PO (Reported) Follow Up pcp in 2 weeks DEYSI EWING MD Aug 29, 2016 14:41
== END 2016-08-29 14:42 | disposition home or self-care (01) | DRG 394 ==
LOC: 4 NORTH 05:01
PROVIDERS: ADMIT Internal Medicine; ATTEND Internal Medicine
DX: K43.3 Parastomal hernia with obstruction, without gangrene (principal); J96.10 Chronic respiratory failure, unspecified whether with hypoxia or hypercapnia; K56.5 Intestinal adhesions [bands] with obstruction (postinfection); K80.20 Calculus of gallbladder without cholecystitis without obstruction; E66.9 Obesity, unspecified; Z68.30 Body mass index [BMI] 30.0-30.9, adult; E78.00 Pure hypercholesterolemia, unspecified; E78.5 Hyperlipidemia, unspecified; E87.6 Hypokalemia; J44.9 Chronic obstructive pulmonary disease, unspecified; Z83.3 Family history of diabetes mellitus; Z85.048 Personal history of other malignant neoplasm of rectum, rectosigmoid junction, and anus; Z87.891 Personal history of nicotine dependence; Z93.3 Colostomy status; Z88.8 Allergy status to other drugs, medicaments and biological substances
CPT/HCPCS: 36415; 74250; 80048; 83690; 83735; 85007; 85027; 94250; 94640; J3480; J7030; J7620; Q9967; S0028

== ENCOUNTER 2016-09-22 01:09 | Inpatient (IN) | payer MEDICARE ==
[~2016-09-22] VITALS: Ht 149.9 cm; Wt 70.4 kg
[~2016-09-22 01:09] MED LIST: ASCO10002 PO; ASPI81TA2 PO; CHOL100013 PO; DOCU100C5 PO; IPRA3AMP NEB; LORA10TA55 PO; MULT1TAB52 PO; OMEG1CAP28 PO; POLY17PO3 PO; RANI150C PO; SIMV40TA3 PO; URSODIOL 300 MG PO
[2016-09-22 02:25] VITALS: BP 157/92
[2016-09-22] MEDS ORDERED: ONDANSETRON PF 4 MG/2 ML VIAL. IV PRN (03:45)
[2016-09-22] MEDS ORDERED: FENTANYL PF 100 MCG/2 ML VIAL. IV PRN (03:45)
[2016-09-22] MEDS ORDERED: ZOLPIDEM 5 MG TABLET. PO PRN (03:45)
[2016-09-22] MEDS ORDERED: 0.9 % SODIUM CHLORIDE 10 ML DISP.SYRIN. IV PRN (03:45)
[2016-09-22 07:13] VITALS: BP 149/77
[2016-09-22 07:40] LABS: BILIRUBIN,URINE NEGATIVE (NEG); GLUCOSE,URINE NEGATIVE (NEG); NITRITE,URINE NEGATIVE (NEG); PH,URINE 7.5; PROTEIN,URINE NEGATIVE (NEG-TRACE)
[2016-09-22 07:50] LABS: ALBUMIN 3.2 g/dL (3.4-5.0); ALBUMIN/GLOBULIN RATIO 0.8 (1.0-1.7); CALCIUM 9.3 mg/dL (8.5-10.1); CREATININE 0.6 mg/dL (0.6-1.0); MAGNESIUM 1.9 mg/dL (1.8-2.4); POTASSIUM 3.7 mmol/L (3.5-5.1); TOTAL BILIRUBIN 1.1 mg/dL (0.2-1.0); TOTAL PROTEIN 7.4 g/dL (6.4-8.2)
[2016-09-22 07:53] LABS: CHOLESTEROL/HDL RATIO 2.7
[2016-09-22] MEDS ORDERED: PANTOPRAZOLE IV PUSH 40 MG VIAL. IVP ONE (08:00)
[2016-09-22 08:04] LABS: BACTERIA,URINE 0 /HPF (0-FEW); SQUAMOUS EPITHELIAL CELL,UR FEW /LPF; WBC,URINE 0 /HPF (0-4)
[2016-09-22] MEDS ORDERED: DOCUSATE SODIUM 100 MG CAPSULE. PO SCH (10:00)
[2016-09-22] MEDS ORDERED: POLYETHYLENE GLYCOL 3350 17 GM PACKET. PO SCH (10:00)
[2016-09-22] MEDS ORDERED: CHOLECALCIFEROL (VITAMIN D3) 1,000 UNIT TABLET PO SCH (10:00)
[2016-09-22] MEDS ORDERED: MULTIVITAMIN with MINERAL TABLET. PO SCH (10:00)
[2016-09-22] MEDS ORDERED: FAMOTIDINE 20 MG TABLET. PO SCH (10:00)
[2016-09-22] MEDS ORDERED: ASPIRIN CHEWABLE 81 MG TABLET. PO SCH (10:00)
[2016-09-22 10:19] VITALS: BP 144/74
[2016-09-22 10:39] LABS: PROTHROMBIN TIME PATIENT 12.7 SEC (11.7-14.0)
[2016-09-22] MEDS ORDERED: IPRATRPIUM/ALBUTEROL 0.5/2.5MG 3 ML NEBU. NEB SCH ×2 (11:00)
--- NOTE | 2016-09-22 11:50 | PDOC ---
Provider Note Provider Note consult #[id number] left sided abd pain, resolved. related to recurrent hernias. rec adat and dc if monik po. rec outpt referral to dr. jessica hays at . d/w pt. KISHOR NEWMAN MD Sep 22, 2016 11:50
--- NOTE | 2016-09-22 12:13 | HP ---
ADMIT DATE: 09/22/2016 CHIEF COMPLAINT: Abdominal pain. HISTORY OF PRESENT ILLNESS: The patient is a pleasant middle-aged female, who has known gallstones. She apparently was in the hospital a month ago, but it was decided not take the gallbladder at that time, she was doing much better. She was again presented to her primary care doctor a couple days ago, had some blood drawn. Her liver function tests are high. She was told that they would contact surgeon to try to give as an outpatient. She could not wait, last night her pain increased, the ER doctor called me at [facility] they transferred her here. I called Dr. Lennon this morning, she is in contacted with her partner, Dr. Zeng, we might be doing a laparoscopic cholecystectomy were waiting further input. PAST MEDICAL HISTORY: known gallstones, previous colon cancer, colon resection, colostomy, hypertension, hyperlipidemia and GERD. ALLERGIES: DIPHENHYDRAMINE. FAMILY HISTORY: Coronary artery disease. SOCIAL HISTORY: She does not drink, smoke or take drugs. MEDICATIONS: Reviewed, please refer to the MRAD. REVIEW OF SYSTEMS: GENERAL: No history of weight change, weakness or fevers. SKIN: No bruising, hair changes or rashes. EYES: No blurred, double or loss of vision. NOSE AND THROAT: No history of nosebleeds, hoarseness or sore throat. HEART: No history of palpitations, chest pain or shortness of breath on exertion. LUNGS: Denies cough, hemoptysis, wheezing or shortness of breath. GASTROINTESTINAL: Denies changes in appetite, nausea, vomiting, diarrhea or constipation. GENITOURINARY: No history of frequency, urgency, hesitancy or nocturia. NEUROLOGIC: Denies history of numbness, tingling, tremor or weakness. PSYCHIATRIC: No history of panic, anxiety or depression. ENDOCRINE: No history of heat or cold intolerance, polyuria or polydipsia. EXTREMITIES: Denies muscle weakness, joint pain, pain on walking or stiffness. PHYSICAL EXAMINATION: VITAL SIGNS: Temperature afebrile, pulse 68, respirations 18, blood pressure 149/77. GENERAL: She is alert, cooperative. HEART: Normal S1, S2. LUNGS: Clear. ABDOMEN: Soft. Decreased bowel sounds, tender. EXTREMITIES: No edema. SKIN: No rashes. PSYCHIATRIC: She is stable. VASCULAR: Good capillary refill. ENDOCRINE: No thyromegaly. LYMPHATICS: No cervical nodes. HEMATOPOIETIC: No bruising. LABORATORY DATA: INR 1. Electrolytes normal. Transaminases are high with an AST of 139, ALT 182, alkaline phosphatase 581. Urinalysis negative. ASSESSMENT AND PLAN: Probable symptomatic gallstones. The patient has been admitted. We are consulting General Surgery. For now, we will give her p.r.n. narcotics, p.r.n. antiemetics. Continue home medicines, clear liquid diet, repeat her labs. STEPHANIE JUAN DO DR: YOLANDA/judith JOB#: [id number] / [id number]
[2016-09-22 14:56] VITALS: BP 134/67
[2016-09-22] MEDS ORDERED: ONDANSETRON ODT 4 MG TAB.RAPDIS. PO ONE (19:00)
--- NOTE | 2016-09-23 06:30 | CONS ---
DATE OF CONSULTATION: 09/22/2016 CHIEF COMPLAINT: Abdominal pain. HISTORY OF PRESENT ILLNESS: The patient is a 75-year-old female who has been admitted twice in the last month for abdominal pain. At this time, she was able to give the history that the pain started at 5 o'clock yesterday afternoon and it became increasingly severe to the point that she sought care at the [facility]. I am unable to see any ER notes from her visit last night, but she was transferred to [place]. She says the pain was constant and was located along the left side of her abdomen. It was associated with one episode of nausea and vomiting. It was not alleviated when she lied down and rested, but it was alleviated with pain medication given to her in the ER. She is currently pain free. It was not associated with change or decrease in her ostomy output. Today, she is very hungry. Her history is that she had an APR approximately 7-8 years ago for rectal cancer. She said this was followed by chemotherapy and radiation. She developed a parastomal hernia, which was repaired with mesh. She says that this mesh repair failed and she was returned to the operating room for removal of the mesh with repair of her recurrent hernia with additional mesh as well as relocation of her stoma. PAST MEDICAL HISTORY: 1. Rectal cancer as described above. 2. Hypercholesterolemia. 3. COPD. She follows with Dr. Paz. PAST SURGICAL HISTORY: 1. APR. 2. Parastomal hernia repair with mesh. 2. Repair of recurrent parastomal hernia with mesh, removal of her old mesh and relocation of her ostomy to the left upper quadrant. ALLERGIES: BENADRYL. MEDICATIONS: I have reviewed medication administration record. She is not requiring pain medication at this time. SOCIAL HISTORY: She is single. She is currently a nonsmoker. She does not drink alcohol heavily. FAMILY HISTORY: Noncontributory to this illness. REVIEW OF SYSTEMS: CONSTITUTIONAL: Denies fevers or chills. EYES: Denies abrupt loss of vision or double vision. She does not wear glasses. EARS, NOSE, MOUTH, AND THROAT: Denies ringing in her ears, but she does have some bilateral hearing loss. CARDIOVASCULAR: Denies chest pain or heart palpitations. RESPIRATORY: She has chronic shortness of breath and cough, and she is currently at her baseline. GASTROINTESTINAL: See HPI. GENITOURINARY: No dysuria or hematuria. HEMATOLOGIC: No easy bleeding or bruising. MUSCULOSKELETAL: She has arthralgias in her hands, specifically she mentions this time her left thumb, but no new myalgias or arthralgias. DERMATOLOGIC: No new skin rashes or lesions. PSYCHIATRIC: No depression or anxiety. NEUROLOGIC: No headaches or seizures. PHYSICAL EXAMINATION: VITAL SIGNS: She is afebrile. Her heart rate is 91, respiratory rate 20, blood pressure is 144/77, O2 sats 96% on 2 liters. GENERAL: She is a well-developed, well-nourished female in no acute distress. She is wearing oxygen at this time, but she says that she does not feel short of breath. She is obese with a BMI of 31. EYES: Pupils are round and reactive. Sclerae are nonicteric. HENT: Head is atraumatic. Mucous membranes are moist. Face is symmetric. NECK: Supple without cervical lymphadenopathy, no supraclavicular lymphadenopathy. Neck is nontender without masses. RESPIRATORY: Respirations are nonlabored. Chest wall is nontender to palpation. CARDIOVASCULAR: Palpation of her left radial pulse, she has 2+ left radial pulse. No pedal edema noted. She has a regular rate by palpation. ABDOMEN: Soft, nondistended, nontender. She has soft parastomal and recurrent incisional hernia. Her ostomy bag has stool in the bag and her abdomen is entirely nontender. NEUROLOGIC: She is alert and oriented x 3, no resting tremor. MUSCULOSKELETAL: She can move all four extremities without difficulty. No obvious deformities to her hands. PSYCHIATRIC: She is cooperative with appropriate mood and affect. LABORATORY DATA: Reviewed, the only labs that I see from this admission is a comprehensive metabolic profile as well as coags and a UA. IMAGING: She has no imaging from this hospital stay, but I reviewed her CT scan from her previous admission on 08/28/2016, she had a nonobstructive small bowel series with contrast passing into the ostomy bag within 60 minutes. ASSESSMENT: 1. Left-sided abdominal pain related to her recurrent incisional and parastomal hernias. 2. Recurrent incisional and parastomal hernias. 3. History of rectal cancer with radiation and chemotherapy required postoperatively. 4. Obesity with BMI of 31. 5. Chronic obstructive pulmonary disease. 6. Cholelithiasis, asymptomatic. 7. Elevated liver function tests. It is unlikely that her elevated liver function tests are related to her asymptomatic cholelithiasis. She has never had any right upper quadrant pain. She does not have postprandial symptoms. It is more likely that her elevated LFTs are related to fatty liver disease. PLAN: I explained once again to this patient that her hernia repair will be very complex given her surgical history and her history of radiation as well as her obesity. Ideally, she would be able to manage without surgical intervention, but given that this is her second admission for abdominal pain related to her hernias, I think at least outpatient consultation with a surgeon, who performs significant number of complex hernia repairs is reasonable. I have asked that she see Dr. Singh castro at for opinion and surgical repair if he deems this necessary. As for today, she has no abdominal pain. She is hungry. Her ostomy is functioning well. She has no nausea with liquids, so can advance as tolerated. She can be discharged home when she can tolerate a regular diet. KISHOR NEWMAN MD DR: CORI/judith JOB#: [id number] / [id number] EDD
== END 2016-09-22 20:03 | disposition home or self-care (01) | DRG 394 ==
LOC: 2 SOUTH 02:37
PROVIDERS: ADMIT Internal Medicine; ATTEND Internal Medicine
DX: K43.5 Parastomal hernia without obstruction or gangrene (principal); K80.00 Calculus of gallbladder with acute cholecystitis without obstruction; E66.9 Obesity, unspecified; E78.00 Pure hypercholesterolemia, unspecified; K43.2 Incisional hernia without obstruction or gangrene; E78.5 Hyperlipidemia, unspecified; I10 Essential (primary) hypertension; J44.9 Chronic obstructive pulmonary disease, unspecified; K21.9 Gastro-esophageal reflux disease without esophagitis; K76.0 Fatty (change of) liver, not elsewhere classified; Z82.49 Family history of ischemic heart disease and other diseases of the circulatory system; Z68.31 Body mass index [BMI] 31.0-31.9, adult; Z85.048 Personal history of other malignant neoplasm of rectum, rectosigmoid junction, and anus; Z92.3 Personal history of irradiation; Z93.3 Colostomy status; Z90.49 Acquired absence of other specified parts of digestive tract; Z92.21 Personal history of antineoplastic chemotherapy
CPT/HCPCS: 36415; 80053; 80061; 81001; 83735; 84443; 85610; 85730; 94250; 94640; 94760; C9113; J7620; Q0162